=== PATIENT | female | born 1955 | race Caucasian/White ===

== ENCOUNTER 2024-07-05 09:22 | Outpatient (CLI) | payer MEDICARE | END 2024-07-05 09:23 | disposition home or self-care (01) | LOC: CSHRAD 09:22 | PROVIDERS: ATTEND Internal Medicine | DX: C34.90 Malignant neoplasm of unspecified part of unspecified bronchus or lung (principal); J90 Pleural effusion, not elsewhere classified | CPT/HCPCS: 71046 ==

== ENCOUNTER 2024-07-11 09:29 | Outpatient (CLI) | payer MEDICARE ==
[2024-07-11 10:42] LABS: Hematocrit 36.9 % (34.9-44.5); Hemoglobin 11.6 g/dL (12.0-15.5); Mean Corpuscular HGB CONC 31.4 g/dL (32.0-36.0); Mean Corpuscular Hemoglobin 27.2 pg (27.0-33.0); Mean Corpuscular Volume 86.6 fL (81.6-98.3); Mean Platelet Volume 8.7 fL (7.4-10.4); Platelet Count 363 10x3/uL (150-450); RBC Distribution Width 13.9 % (11.5-14.5); Red Blood Cell (RBC) Count 4.26 10x6/uL (3.90-5.03); White Blood Cell (WBC) Count 11.3 10x3/uL (3.5-10.5)
[2024-07-11 10:51] LABS: PTT 29.1 sec (22.0-33.0)
[2024-07-11 10:55] LABS: ALT (SGPT) 11 U/L (8-55); AST (SGOT) 26 U/L (5-34); Albumin 3.1 g/dL (3.4-4.8); Alkaline Phosphatase 74 U/L (40-110); Bilirubin, Direct 0.2 mg/dL (0.1-0.3); Bilirubin, Total 0.4 mg/dL (0.2-1.2); Protein, Total 7.7 g/dL (5.8-8.1)
== END 2024-07-11 09:30 | disposition home or self-care (01) ==
LOC: CSHLAB 09:29
PROVIDERS: ATTEND Surgery
DX: C34.90 Malignant neoplasm of unspecified part of unspecified bronchus or lung (principal)
CPT/HCPCS: 80076; 85027; 85610; 85730

== ENCOUNTER 2024-07-13 05:56 | Day surgery (SDC) | payer MEDICARE ==
[2024-07-11 09:49] VITALS: BMI 29.0
[2024-07-13] MEDS ORDERED: Bupivacaine HCl 0.5%/Epinephrine 1:200,000/PF 30 ml Vial ONE (06:11)
[2024-07-13] MEDS ORDERED: CEFAZOLIN 2 GM VIAL ONE (06:11)
[2024-07-13] MEDS ORDERED: Lidocaine 1% PF 5 ML VIAL ONE (06:55)
[2024-07-13] MEDS ORDERED: Dexamethasone 4 mg/ml Vial ONE (06:55)
[2024-07-13] MEDS ORDERED: fentaNYL 50 mcg/mL 1 mL Vial ONE (06:55)
[2024-07-13] MEDS ORDERED: PROPOFOL 20 ML ONE (06:55)
[2024-07-13] MEDS ORDERED: Ondansetron PF 4 MG/2 ML Vial ONE (06:55)
[2024-07-13] MEDS ORDERED: Dexmedetomidine 200 MCG/2 ML VIAL ONE (07:24)
[2024-07-13] MEDS ORDERED: KETAMINE 100 MG/ML (5ML VIAL) ONE (07:24)
[2024-07-13] MEDS ORDERED: Promethazine HCl 25 MG/ML VIAL ONE (07:24)
[2024-07-13] MEDS ORDERED: Water For Injection,Sterile 20 ML ONE (07:30)
[2024-07-13] MEDS ORDERED: PHENYLEPHRINE-NS 100 MCG/ML 10 ML SYRINGE ONE (07:34)
[2024-07-13] MEDS ORDERED: ePHEDrine Sulfate 50 MG/10 ML VIAL ONE (07:34)
[2024-07-13] MEDS ORDERED: HYDROcodone/Acetaminophen 5/325 mg Tablet ONE (08:25)
== END 2024-07-13 09:04 | disposition home or self-care (01) ==
LOC: CSHSDC 05:56
PROVIDERS: ATTEND Surgery
PROC: 0JH63WZ Insertion of Totally Implantable Vascular Access Device into Chest Subcutaneous Tissue and Fascia, Percutaneous Approach (ICD-10-PCS; principal; 2024-07-13)
DX: C34.91 Malignant neoplasm of unspecified part of right bronchus or lung (principal)
CPT/HCPCS: 36561; 71045; A6258; C1788; J1100; J1642; J2405; J2550; J2704; J3010